=== PATIENT | female | born 1965 | race Two or more races ===

== ENCOUNTER 2023-01-15 15:35 | Emergency (ER) | payer SELFPAY ==
--- NOTE | 2023-01-15 15:43 | ED Physician Documentation ---
PD HPI FOCAL NEURO - Stated complaint Stated Complaint: FACE DROOPING - History obtained from History obtained from: Patient - History of Present Illness Timing - onset: How many hours ago (few), Today Timing - duration: Hours Timing - details: Abrupt onset, Still present (increasing over the past few hours.) Severity of deficit: Moderate Weakness: Face, Left. No: Arm, Hand, Leg Numbness: No: Face, Arm, Hand, Leg Associated symptoms: Headache (has had some headache frontal right for past 1-2 days. No injury.) Baseline status: positive: A&OX3, ambulatory, indep Similar symptoms before: Has not had sx before Review of Systems Constitutional: denies: Fever, Chills, Myalgias Nose: denies: Rhinorrhea / runny nose, Congestion Throat: denies: Oral lesions / sores, Sore throat Respiratory: denies: Cough Neurologic: reports: Focal weakness (just left face), Headache. denies: Generalized weakness, Numbness, Confused, Altered mental status, Head injury, LOC PD PAST MEDICAL HISTORY - Past Medical History Cardiovascular: Hypertension Respiratory: None Neuro: None Endocrine/Autoimmune: None - Present Medications Home Medications: Ambulatory Orders Medication Instructions Recorded Confirmed Cyclobenzaprine [Flexeril] 10 mg PO TID PRN 01/15/23 01/15/23 HYDROcod/ACETAM 5/325 [[place] 5/325] 1 ea PO Q6H PRN #12 tablet 01/15/23 Latanoprost 0.005% Ophth Drops 1 drops OPTH QPM 01/15/23 01/15/23 [Xalatan Ophth Drops] Levothyroxine [Synthroid] 75 mcg PO QDAC 01/15/23 01/15/23 Loratadine [Allergy Relief] 10 mg PO DAILY 01/15/23 01/15/23 Valacyclovir HCl [Valtrex] 1,000 mg PO TID #15 tablet 01/15/23 dexAMETHasone [Decadron] 4 mg PO DAILY #7 tablet 01/15/23 - Allergies Allergies/Adverse Reactions: Allergies Allergy/AdvReac Type Severity Reaction Status Date / Time ibuprofen [From Motrin] Allergy Unknown Verified 01/15/23 15:56 PD ED PE NORMAL - Vitals Vital signs reviewed: Yes - General General: Alert and oriented X 3, No acute distress, Well developed/nourished - HEENT HEENT: Atraumatic, PERRL, EOMI - Neck Neck: Supple, no meningeal sign, No adenopathy, No JVD, No bruit - Cardiac Cardiac: RRR, No murmur - Respiratory Respiratory: Clear bilaterally - Abdomen Abdomen: Soft, Non tender - Derm Derm: Normal color, Warm and dry - Neuro Neuro: Alert and oriented X 3, No sensory deficit, Normal speech. 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 ) Eye Opening: Spontaneous Motor: Obeys Commands Verbal: Oriented GCS Score: 15 NIHSS - Level of Consciousness Level of consciousness: (0) Alert, Keenly responsive LOC Questions: (0) Answers both Q's correct LOC Commands: (0) Performs both correctly - Gaze Best Gaze: (0) Normal - Visual Visual: (0) No loss - Facial Palsy Facial Palsy: (2) Partial paralysis - Motor Arms (both separate) Motor Arm (right): (0) No drift Motor Arm (left): (0) No drift - Motor Legs (both separate) Motor Leg (right): (0) No drift Motor Leg (left): (0) No drift - Limb Ataxia Limb Ataxia: (0) Absent - Sensory Sensory: (0) Normal - Best Language Best Language: (0) No aphasia - Dysarthria Dysarthria: (0) Normal - Extinction and Inattention (formally neg Extinction and inattention: (0) No abnormality - Total Score/Results Total Score/Result: 2 Results - Vitals Vitals: Vital Signs - 24 hr 01/15/23 01/15/23 01/15/23 15:48 16:22 18:00 Temperature 36.9 C Heart Rate 88 78 71 Respiratory 18 14 20 Rate Blood Pressure 158/86 H 146/67 H 130/55 L O2 Saturation 96 98 96 Oxygen O2 Source Room air - Labs Labs: Laboratory Tests 01/15/23 01/15/23 01/15/23 16:12 16:12 16:12 WBC 11.4 H RBC 4.48 Hgb 12.9 Hct 39.5 MCV 88.2 MCH 28.8 MCHC 32.7 RDW 12.9 Plt Count 267 MPV 9.3 Neut # (Auto) 6.4 Lymph # (Auto) 4.1 H [place] # (Auto) 0.6 Eos # (Auto) 0.2 Baso # (Auto) 0.1 Absolute Nucleated RBC 0.00 Nucleated RBC % 0.0 ESR 25 Sodium 137 Potassium 3.5 Chloride 103 Carbon Dioxide 30 Anion Gap 4.0 L BUN 19 Creatinine 0.9 Estimated GFR (MDRD) 64 L Glucose 127 H Calcium 9.7 C-Reactive Protein < 0.5 - Rads (name of study) head CT Relevant Findings:: Prelim report reviewed, EMP independent interpretation of test (done since pt with some headache for past 2 days.) PD Medical Decision Making - ED course Complexity details: reviewed results (labs are good with normal WBC and ESR so not having findings for vasculitis. ), considered differential (left facial weakness onset quickly over 2 hours with worsening. No other weakness. Involves forehead as well. c/w [place]. Has had front headache [address] imaging to ensure no focal bleed/etc. ), d/w patient Departure - Departure Disposition: 01 Home, Self Care Clinical Impression: Weakness on left side of face, Idiopathic acute facial nerve palsy Condition: Stable Record reviewed to determine appropriate education?: Yes Instructions: ED [place] Palsy Follow-Up: Lexii Randle MD [Primary Care Provider] - Prescriptions: dexAMETHasone [Decadron] 4 mg PO DAILY #7 tablet HYDROcod/ACETAM 5/325 [[place] 5/325] 1 ea PO Q6H PRN #12 tablet PRN Reason: Pain Valacyclovir HCl [Valtrex] 1,000 mg PO TID #15 tablet Print Language: Danish Comments: This looks like a inflammation of the facial nerve called More's palsy. You did have some headache and so we did do a CT scan and that appears normal to me without any signs of swelling, bleeding, tumors etc. Typically from the onset of symptoms to the worst of the symptoms is commonly a few days so there were weakness will likely worsen some. Manage swallowing and eating as best you can. People often find thickened foods and use of a straw easier than trying to drink fluids from a cup but manage as best you can. Another consideration is dryness of the eyes if the eyelid does not close well and blink often. You can use some artificial tears or eye lubricating drops every couple of hours through the day as this improves. Typically will treat with some steroid anti-inflammatories for the next week and also a antiviral medicine as sometimes this is caused by a viral inflammation of the nerve. For your headache, use Tylenol 500 to 650 mg every 6 hours if needed for pains. I also prescribed hydrocodone/acetaminophen if needed for worse headache or facial pain to use periodically as needed. I sent new prescriptions to the [facility] pharmacy. You did receive doses of the medication for this evening. Follow-up with your primary care later this coming week, call for an appointment. Return if other symptoms develop. I am prescribing a short course of narcotic pain medication for you. These are potentially dangerous and addictive medications that should be used carefully. These medications may constipate you. Take an [id number] stool softener such as docusate twice daily with plenty of water while taking these medications. If you go 24 hours without a bowel movement, take [id number] MiraLAX, per package instructions. Do not drink or drive while taking these medications. If you received narcotic or sedating medications while in the emergency department do not drive for 24 hours. Store this medication in a safe, secure place and out of reach of children. It is a violation of federal law to give or sell this medication to another person or to use in a manner other than prescribed. The ED will not refill narcotic prescriptions, including prescriptions lost or stolen. You can dispose of unwanted medications at the [facility]'s office or at several pharmacies such as [facility]. Forms: PCP List Discharge Date/Time: 01/15/23 19:20
[2023-01-15] MEDS ORDERED: dexAMETHasone 4 MG TABLET PO STA (15:56)
[2023-01-15] MEDS ORDERED: HYDROcod/ACETAM 5/325 MG TABLET PO STA (15:56)
[2023-01-15 16:17] LABS: BASOPHILS # (AUTO) 0.1 10^3/uL (0.0-0.1); BASOPHILS % (AUTO) 0.5 %; EOSINOPHILS # (AUTO) 0.2 10^3/uL (0.0-0.7); EOSINOPHILS % (AUTO) 1.8 %; HCT - HEMATOCRIT 39.5 % (37.0-47.0); HGB - HEMOGLOBIN 12.9 g/dL (12.0-16.0); LYMPHOCYTES # (AUTO) 4.1 10^3/uL (1.5-3.5); LYMPHOCYTES % (AUTO) 36.1 %; MEAN CORPUSCULAR HEMOGLOBIN 28.8 pg (27.0-31.0); MEAN CORPUSCULAR HGB CONC 32.7 g/dL (32.0-36.0); MEAN CORPUSCULAR VOLUME 88.2 fL (81.0-99.0); MEAN PLATELET VOLUME 9.3 fL (7.9-10.8); MONOCYTES # (AUTO) 0.6 10^3/uL (0.0-1.0); NEUTROPHILS # (AUTO) 6.4 10^3/uL (1.5-6.6); NEUTROPHILS % (AUTO) 56.2 %; PLT - PLATELET COUNT 267 10^3/uL (130-450); RED BLOOD COUNT 4.48 10^6/uL (4.20-5.40); RED CELL DISTRIBUTION WIDTH 12.9 % (12.0-15.0); WHITE BLOOD COUNT 11.4 x10^3/uL (4.8-10.8)
[2023-01-15 16:33] LABS: BUN - BLOOD UREA NITROGEN 19 mg/dL (6-20); CALCIUM 9.7 mg/dL (8.5-10.3); CARBON DIOXIDE - CO2 30 mmol/L (21-32); CHLORIDE 103 mmol/L (101-111); CREATININE 0.9 mg/dL (0.6-1.3); CRP - C-REACTIVE PROTEIN < 0.5 mg/dL (<0.5); GFR - MDRD 64 (>89); GLUCOSE 127 mg/dL (74-104); POTASSIUM 3.5 mmol/L (3.5-4.5); SODIUM 137 mmol/L (135-145)
[2023-01-15] MEDS ORDERED: valACYclovir 500 MG TABLET PO STA (18:51)
--- NOTE | 2023-01-15 19:00 | CT Report ---
PROCEDURE: HEAD WO INDICATIONS: headache 3-4 days TECHNIQUE: Noncontrast 4.5 mm thick angled axial sections acquired from the foramen magnum to the vertex. For r adiation dose reduction, the following was used: automated exposure control, adjustment of mA and/or kV according to patient size. COMPARISON: None. FINDINGS: Image quality: There is streak artifact seen through the skull base. CSF spaces: Basal cisterns are patent. No extra-axial fluid collections. Ventricles are normal in size and shape. Brain: No midline shift. No intracranial masses or hemorrhage. [place]-white matter interface is norm al. Skull and face: Calvarium and visualized facial bones are intact, without suspicious lesions. Sinuses: Visualized sinuses and mastoids are clear. IMPRESSION: A cause of headache cannot be seen on these images. No intracranial hemorrhage is seen. To the limits of this noncontrast study, no findings of masses or mass effect can be seen. Reviewed by: Deyvi Phillips MD on 01/15/2023 5:59 PM NARAYAN Approved by: Deyvi Phillips MD on 01/15/2023 5:59 PM NARAYAN Station ID: [id number]
[2023-01-15 19:20] VITALS: BP 130/55; O2SAT 96
== END 2023-01-15 19:20 | disposition home or self-care (01) ==
LOC: ED 15:35
DX: G51.0 Bell's palsy (principal); I10 Essential (primary) hypertension
CPT/HCPCS: 36415; 70450; 80048; 85025; 85651; 86140; 99284; A9270; J8540